=== PATIENT | male | born 1975 | race Caucasian/White ===

== ENCOUNTER 2022-10-18 17:58 | Inpatient (IN) | payer OTHER, SELFPAY ==
--- NOTE | ~2022-10-18 | CT_ITS ---
EXAMINATION: CT HEAD WITHOUT CONTRAST CT CERVICAL SPINE WITHOUT CONTRAST CLINICAL INFORMATION: Head trauma. COMPARISON: None available. TECHNIQUE: Contiguous axial imaging was performed from the skull base to vertex without intravenous administration of contrast. Contiguous axial imaging was performed from the upper chest through the skull base without intravenous administration of contrast. Coronal and sagittal reformats were obtained at the acquisition workstation. This CT examination was performed using dose optimization techniques as appropriate, variously including the following: *Automated exposure control. *Adjustment of mA and/or kV according to patient size (this includes techniques or standardized protocols for targeted exams where dose is matched to indication/reason for exam; i.e. extremities or head). *Use of iterative reconstruction technique. DLP: 1404 mGy-cm FINDINGS: Head: There is no evidence of acute intracranial hemorrhage or edematous territorial infarction. Ware-white matter differentiation is preserved. There is no abnormal attenuation within the brain parenchyma. The ventricles are normal in morphology and size. No evidence for obstructive hydrocephalus. No abnormal mass effect or midline shift. No extra-axial fluid collections. No acute soft tissue or osseous abnormalities. Mild mucosal thickening of the paranasal sinuses. The mastoid air cells and middle ear cavities are clear. Cervical Spine: The atlantooccipital and atlantoaxial articulations remain well aligned. Straightening of the normal cervical lordosis. Otherwise, there is anatomic alignment of the vertebral bodies and posterior elements. No evidence of acute fracture or subluxation. The vertebral body heights and disc spaces are maintained. There is no prevertebral soft tissue swelling. The thyroid gland and remaining cervical soft tissues are normal in appearance. The lung apices demonstrate no abnormalities. CT/CT cervical spine wo IV con IMPRESSION: 1. No evidence of acute intracranial hemorrhage or edematous territorial infarction. 2. No evidence of acute fracture or traumatic subluxation of the cervical spine.
--- NOTE | ~2022-10-18 | XR_ITS ---
EXAMINATION: XR CHEST CLINICAL INFORMATION: Chest trauma COMPARISON: None available. TECHNIQUE: Frontal view of the chest was obtained. FINDINGS: The lungs are clear. There are no pleural effusions. The cardiomediastinal silhouette is unremarkable. No displaced rib fracture or pneumothorax is evident. XR/XR chest 1V IMPRESSION: No acute disease.
[2022-10-18 18:09] VITALS: BP 122/87; PULSE 104; RESP 10; TEMP 36.7; O2SAT 90; O2SAT 95; BMI 34.0
--- NOTE | 2022-10-18 18:12 | PC.NURSE ---
SECURITY AWARE OF PT
--- NOTE | 2022-10-18 18:31 | ED_ITS ---
HPI - Overdose General Chief Complaint: Overdose Stated Complaint: OD Time Seen by Provider: 10/18/22 18:07 Source: patient Mode of arrival: ambulatory Limitations: other (poor historian, story changes ) History of Present Illness HPI Narrative: 47-year-old male hx of IVDA, alcohol abuse currently attending AA presents to the emergency department via ambulance status post opiate overdose, patient reports using 1 bag of heroin, was found unresponsive at [facility] in the bathroom. Patient received 4X 4 mg of intranasal Narcan by PD and 1 mg of IV narcan by EMS just prior to arrival. Patient tells me that he was clean for the past 6 months and relapsed today. Denies suicidal and homicidal ideation. Unsure of head trauma head trauma. Not on blood thinners. Denies headache, vision changes, dizziness, chest pain, shortness of breath, nausea, vomiting, abdominal pain. Related Data Allergies Allergy/AdvReac Type Severity Reaction Status Date / Time No Known Allergies Allergy Verified 10/18/22 18:12 [No Known Allergies*] Review of Systems Review of Systems: Constitutional : No Weight loss, No Fever, No Chills, No Fatigue, No Malaise ENT/Mouth : No sore throat, No Rhinorrhea Eyes: No Eye Pain, No Swelling, No Redness Cardiovascular : No Chest Pain, No SOB, No Dyspnea on Exertion, No Orthopnea, No Edema, No Palpitations Respiratory : No Cough, No Sputum, No Wheezing Gastrointestinal : No Nausea, No Vomiting, No Diarrhea, No Constipation, No abdominal Pain, No Hematochezia, No Melena Genitourinary : No Dysuria, No Urinary Frequency, No Hematuria, Musculoskeletal : No joint pain, No Myalgias, No Joint Swelling Skin : No Skin Lesions, No rash Neuro : No Weakness, No Numbness, No Dizziness, No Headache Psych : No Anxiety/Panic, No Depression, No SI/HI All other systems reviewed and are negative Yes all other systems are reviewed and are negative PMFSH Past Medical History Attestation statement: The following information was validated with the patient. Source: old records reviewed and nursing notes reviewed Social History Social History Alcohol intake: former Smoked in Last 30 Days: No Substance Use Type: Heroin Last Used Substance: Hours (ago) Any prior treatment program specific to substance use: Yes Advance Directives: No Advance Directives Information Provided: No Physical Exam Vital Signs: Vital Signs: Last Vital Signs Temp 96.5 F L 10/18/22 21:41 Pulse 113 H 10/18/22 21:41 Resp 14 10/18/22 21:41 BP 150/94 H 10/18/22 21:41 Pulse Ox 97 10/18/22 21:41 O2 Del Method Room Air 10/18/22 21:41 BMI result Body Mass Index 34.0 vss Appearance: Alert.? Oriented X3.? No acute distress.? Head: Normocephalic, atraumatic, no step-offs or deformities Eyes: Pupils equal, round and reactive to light.?.? Neck: Normal inspection.? Neck supple.? CVS: Normal heart rate and rhythm.? Pulses normal.? Respiratory: No respiratory distress.? Breath sounds normal.? Abdomen: Soft and nontender.? Skin: Skin warm and dry.? Normal skin color.? Normal skin turgor.? Extremities: No lower extremity edema.? No calf ttp. 5/5 strength to bilateral upper and lower extremities Neuro: Oriented X 3.? No motor deficit.? No sensory deficit. CN 2-12 intact Course Reevaluation(s) Reevaluation #1: I did have the opportunity to speak to who tells me last time she. Patient was around 16:00, he was found unresponsive, cyanotic with his head on the sink at [facility], he was standing up, she tells me she thinks that he hit his head against the sink. She tells me last time he overdose was in 2019. She reports that she does not feel comfortable taking him home as they do have a young daughter at home also concerned he may have done this as a suicide attempt although has not made clear statements about that. He has been on a Section 35 in the past. She tells me she is worried about him. Because of this provided information will obtain head CT and CT of the cervical spine as well as chest x-ray. Will obtain basic labs to ensure patient is not in rhabdo. When I went to go re-evaluate patient respiratory rate of 8, saturating 88% on room air. More Narcan ordered through IV. Patient's CBC within normocytic anemia hemoglobin of 7.5, hematocrit 22.2, patient denies any active bleeding in is adamantly refusing rectal exam. Chemistry with slightly elevated bilirubin 1.5, total creatinine kinase 472, not consistent with rhabdomyolysis. UA without infection. Urine toxicology pending. Ethanol negative. COVID negative. Time: 18:50 Reevaluation #2: Initially when IV Narcan was ordered it was not given this patient woke up, started vomiting and was awake and alert, now Patient saturating 85% w/ 2L NC Narcan will be given Time: 19:27 Reevaluation #3: Refusing Narcan adamantly. Currently on nasal cannula 3L Time: 20:11 Additional Reevaluation(s): Patient's O2 saturation was steadily in the mid 80s without oxygen. Patient ripped out his IV, illogical thoughts, not understanding risks. Poor judgment and insight, irrational behavior in the room. Patient telling me that he feels anxious and depressed for overdosing. I discussed this case with my attending, patient's story now changing and stating he only use half a bag and he wants to leave, security at the bedside due to patient's behavior, discussed with my attending who recommends Section 12 with psych evaluation patient could be a threat to others and self. Patient 87% on room air, discussed with my attending patient should be on a Narcan drip. Patient is on oxygen. Ripped out IV and tried to leave department. Security at bedside. 2118 Patient got up from the bed on his own, tried to walk to the bathroom, he fell, unsteady gait. Witnessed fall by this PA-C patient lowered himself to the ground. No head strike or loss of consciousness. 2 Patient again 84-85% on RA placed on O2. Refusing narcan. Care team reviewed case who believes section 12 is appropriate. 2241 Patient is agreeable to Narcan drip. Hypoxic, placed on oxygen. Patient will be going to the ICU with Narcan drip at 1. Spoke to Dr. Hanson who will admit patient. Medications Administered Generic Name Dose Route Start Last Admin Trade Name Freq PRN Reason Stop Dose Admin Naloxone HCl 5 mg/ Dextrose 100 mls @ 20 mls/hr 10/18/22 21:30 10/18/22 22:26 IV 1 mg/hr .Q5H SAMIR 20 mls/hr Administration 1 MG/HR Discontinued Medications Generic Name Dose Route Start Last Admin Trade Name Sandrine PRN Reason Stop Dose Admin Sodium Chloride 1,000 mls @ 999 mls/hr 10/18/22 19:00 10/18/22 18:59 Ns IV 10/18/22 20:00 999 mls/hr .Q1H1M SAMIR Administration Naloxone HCl 1 mg 10/18/22 18:48 10/18/22 19:05 Naloxone Hcl 2 Mg/2 Ml Syringe IVPUSH 10/18/22 18:49 Not Given ONCE ONE Naloxone HCl 1 mg 10/18/22 19:28 10/18/22 19:35 Naloxone Hcl 2 Mg/2 Ml Syringe IVPUSH 10/18/22 19:29 Not Given ONCE ONE Ondansetron HCl 4 mg 10/18/22 18:48 10/18/22 18:59 Ondansetron Hcl 4 Mg/2 Ml Vial IVPUSH 10/18/22 18:49 4 mg ONCE ONE Administration Medical Decision Making Medical Decision Making [facility] Narrative: 1833 47-year-old male presents status post unintentional opiate overdose just prior to arrival arrives via EMS received 4X 4 mg of intranasal narcan by PD and 1 mg of IV by EMS with good affect. Denies SI and HI. Not on blood thinners. He denies truama . Patient dozing off during my exam Physical exam benign. Neuro nonfocal. Lungs clear. Abdomen soft nontender nondistended. Likely opiate overdose. I do not suspect metabolic disturbances. Unlikely suicide attempt based off patient history and physical exam. Plan monitor patient, substance use disorder evaluation. Differential Diagnosis Differential Diagnoses: The differential diagnosis associated with the presentation includes Likely opiate overdose. I do not suspect metabolic disturbances. Unlikely suicide attempt based off patient history and physical exam. Admission/Observation Consideration of admission/observation: Escalation of care including admission/observation considered Lab Data [facility] Lab Attestation statement: I reviewed the patient's lab results. 10/18/22 18:57 10/18/22 18:57 Labs: Lab Results 10/18/22 10/18/22 10/18/22 Range/Units 18:57 18:57 18:57 WBC 10.9 H (4.8-10.8) X10*3/uL RBC 2.51 L (4.60-5.80) X10*6/uL Hgb 7.5 L (14.0-18.0) g/dl Hct 22.2 L (42.0-52.0) % MCV 88.4 (80.0-98.0) fL MCH 29.9 (27.0-33.0) pg MCHC 33.8 (31.0-36.0) g/dl RDW 12.4 (11.0-16.0) % Plt Count 105 L (160-400) X10*3/uL MPV 10.2 (9.4-12.4) fL Immature Gran % (Auto) 0.5 H (0.0-0.4) % Neut % (Auto) 84.5 H (45-73) % Lymph % (Auto) 7.0 L (20-40) % [place] % (Auto) 7.8 (2-11) % Eos % (Auto) 0.1 (0-4) % Baso % (Auto) 0.1 (0-2) % Lymph # (Auto) 0.8 L (1.2-4.9) X10*3/uL [place] # (Auto) 0.9 (0.1-1.2) X10*3/uL Eos # (Auto) 0.0 (0.0-0.4) X10*3/uL Baso # (Auto) 0.0 (0.0-0.2) X10*3/uL Abs Immat Gran (auto) 0.05 H (0.00-0.03) X10*3/uL Absolute Neuts (auto) 9.3 H (2.0-8.3) x10*3/uL Absolute Nucleated RBC 0.000 (0.0-0.012) X10*3/uL Nucleated RBC % (auto) 0.0 (0.0-0.2) /100WBC Sodium 142 (135-145) mmol/L Potassium 3.7 (3.3-5.1) mmol/L Chloride 107 (96-108) mmol/L Carbon Dioxide 22 (22-29) mmol/L Anion Gap 17 (12-20) BUN 15 (9-16) mg/dL Creatinine 1.08 (0.5-1.4) mg/dL Estim Creat Clear Calc 115.1 Estimated GFR > 60 Random Glucose 125 H (60-115) mg/dL Calcium 9.7 (8.4-10.2) mg/dL Total Bilirubin 1.5 H (0.0-1.0) mg/dL AST 25 (5-37) U/L ALT 23 (0-40) U/L Alkaline Phosphatase 65 (39-117) U/L Total Creatine Kinase 472 H (38-174) U/L Total Protein 6.6 (6.5-8.0) g/dL Albumin 4.1 (3.5-5.0) g/dL Urine Color Urine Appearance Urine pH (5.0-9.0) Ur Specific [place] (1.005-1.025) Urine Protein (Neg-Trace) mg/dL Urine Glucose (UA) (Negative) mg/dL Urine Ketones (Negative) mg/dL Urine Blood (Negative) Urine Nitrite (Negative) Ur Leukocyte Esterase (Negative) Ethyl Alcohol < 10 mg/dL COVID-19 ([place]) Negative (Negative) COVID-19 Clin Com See Note 10/18/22 Range/Units 22:27 WBC (4.8-10.8) X10*3/uL RBC (4.60-5.80) X10*6/uL Hgb (14.0-18.0) g/dl Hct (42.0-52.0) % MCV (80.0-98.0) fL MCH (27.0-33.0) pg MCHC (31.0-36.0) g/dl RDW (11.0-16.0) % Plt Count (160-400) X10*3/uL MPV (9.4-12.4) fL Immature Gran % (Auto) (0.0-0.4) % Neut % (Auto) (45-73) % Lymph % (Auto) (20-40) % [place] % (Auto) (2-11) % Eos % (Auto) (0-4) % Baso % (Auto) (0-2) % Lymph # (Auto) (1.2-4.9) X10*3/uL [place] # (Auto) (0.1-1.2) X10*3/uL Eos # (Auto) (0.0-0.4) X10*3/uL Baso # (Auto) (0.0-0.2) X10*3/uL Abs Immat Gran (auto) (0.00-0.03) X10*3/uL Absolute Neuts (auto) (2.0-8.3) x10*3/uL Absolute Nucleated RBC (0.0-0.012) X10*3/uL Nucleated RBC % (auto) (0.0-0.2) /100WBC Sodium (135-145) mmol/L Potassium (3.3-5.1) mmol/L Chloride (96-108) mmol/L Carbon Dioxide (22-29) mmol/L Anion Gap (12-20) BUN (9-16) mg/dL Creatinine (0.5-1.4) mg/dL Estim Creat Clear Calc Estimated GFR Random Glucose (60-115) mg/dL Calcium (8.4-10.2) mg/dL Total Bilirubin (0.0-1.0) mg/dL AST (5-37) U/L ALT (0-40) U/L Alkaline Phosphatase (39-117) U/L Total Creatine Kinase (38-174) U/L Total Protein (6.5-8.0) g/dL Albumin (3.5-5.0) g/dL Urine Color Yellow Urine Appearance Clear Urine pH 5.0 (5.0-9.0) Ur Specific [place] >= 1.030 H (1.005-1.025) Urine Protein 30 (1+) H (Neg-Trace) mg/dL Urine Glucose (UA) 500 H (Negative) mg/dL Urine Ketones 40 (Negative) mg/dL Urine Blood Trace H (Negative) Urine Nitrite Negative (Negative) Ur Leukocyte Esterase Negative (Negative) Ethyl Alcohol mg/dL COVID-19 ([place]) (Negative) COVID-19 Clin Com Independent Interpretation I performed an independent interpretation of an: CT Scan (CT of the head with no evidence of acute intracranial hemorrhage or edematous her to or infarction. No evidence of acute fracture or traumatic subluxation of the cervical spine.) Radiology Impression Discussion of test interpretation with radiology: I have reviewed the radiologist's reading. Core Measures AMI core measures followed: Yes Measure exclusions: not indicated Critical Care Time Critical Care Time Critical Care Time: Yes Total Critical Care Time: 60 Attestation: I attest to this time spent taking care of the patient, obtaining history, physical, reviewing labs, imaging, speaking to my attending, speaking to specialist. Discharge Plan Discharge Clinical Impression: Drug overdose Patient Disposition: Admitted As Inpatient Interventions: [place]-Suicide Risk Severity Scale Last Done: 10/18/22 21:43
[2022-10-18] MEDS: 0.9 % Sodium Chloride 1,000 ML 999 ML IV (18:59)
[2022-10-18] MEDS: ondansetron HCL 4 MG/2 ML VIAL IVPUSH (18:59)
[2022-10-18 19:08] LABS: MANUAL DIFF FLAG NO
[2022-10-18 19:09] LABS: Basophils Percent Auto 0.1 % (0-2); Eosinophils Percent Auto 0.1 % (0-4); Hematocrit 22.2 % (42.0-52.0); Hemoglobin 7.5 g/dl (14.0-18.0); Imm Gran Abs Auto 0.05 X10*3/uL (0.00-0.03); Imm Gran Pct Auto 0.5 % (0.0-0.4); Lymphocytes Absolute Auto 0.8 X10*3/uL (1.2-4.9); Mean Corpuscular HGB Conc 33.8 g/dl (31.0-36.0); Mean Corpuscular Hemoglobin 29.9 pg (27.0-33.0); Mean Corpuscular Volume 88.4 fL (80.0-98.0); Mean Platelet Volume 10.2 fL (9.4-12.4); Monocytes Absolute Auto 0.9 X10*3/uL (0.1-1.2); Monocytes Percent Auto 7.8 % (2-11); Neutrophils Absolute Auto 9.3 x10*3/uL (2.0-8.3); Neutrophils Percent Auto 84.5 % (45-73); Platelet Count 105 X10*3/uL (160-400); Red Blood Count 2.51 X10*6/uL (4.60-5.80); Red Cell Distribution Width 12.4 % (11.0-16.0); White Blood Count 10.9 X10*3/uL (4.8-10.8)
[2022-10-18 19:21] LABS: COVID-19 Test Negative (Negative); IDNOW Serial# BCCEAD1C
[2022-10-18 19:25] VITALS: RESP 9; O2SAT 83
[2022-10-18 19:42] LABS: Alanine Aminotransferase 23 U/L (0-40); Albumin Level 4.1 g/dL (3.5-5.0); Alkaline Phosphatase 65 U/L (39-117); Anion Gap 17 (12-20); Aspartate Amino Transferase 25 U/L (5-37); Bilirubin Total 1.5 mg/dL (0.0-1.0); Blood Urea Nitrogen 15 mg/dL (9-16); Calcium 9.7 mg/dL (8.4-10.2); Carbon Dioxide 22 mmol/L (22-29); Chloride 107 mmol/L (96-108); Creatinine Clr Calc Pharmacy 115.1; Estimated Glomerular Filt Rate > 60; Ethanol < 10 mg/dL; Glucose Random 125 mg/dL (60-115); Potassium 3.7 mmol/L (3.3-5.1); Sodium 142 mmol/L (135-145); Total Protein 6.6 g/dL (6.5-8.0)
--- NOTE | 2022-10-18 21:13 | PC.NURSE ---
late entry- pt spo2 dropped to 83% per richie navarro give iv narcan. pt adamantly refused narcan. this rn and charge poster at bedside. pt placed on 2LPM NC spo2 96%. this rn made richie navarro aware. richie navarro states will discuss with pt.
--- NOTE | 2022-10-18 21:16 | PC.NURSE ---
late entry- per richie navarro removed pt from O2 NC . pt spo2 96%
--- NOTE | 2022-10-18 21:17 | PC.NURSE ---
late entry- this rn, battery charger conveyor line. and richie navarro entered pt pt removed IV by self. pt stating wants to leave states my oxygen is fine . pt increasing agitation. pt not allowing provider to speak. security on standby
[2022-10-18 21:28] VITALS: RESP 10; O2SAT 85
[2022-10-18 21:41] VITALS: BP 150/94; PULSE 113; RESP 14; TEMP 35.8; O2SAT 97
--- NOTE | 2022-10-18 21:51 | PC.NURSE ---
late entry- @ 2127 pt spo2 dropped to 85% ramon chang. pt moved to room 9.
[2022-10-18] MEDS: Naloxone HCl 5 MG in Dextrose 5 % 95 ML 20 MG IV (22:26)
[2022-10-18 22:36] LABS: Appearance Urine Clear; Color Urine Yellow; Glucose Urine UA 500 mg/dL (Negative); Leukocyte Esterase Urine Negative (Negative); Nitrite Urine Negative (Negative); Specific Gravity - Urine >= 1.030 (1.005-1.025); UMIC TRIGGER UACC YES; Urine Blood Trace (Negative); Urine Ketones 40 mg/dL (Negative); Urine Protein 30 (1+) mg/dL (Neg-Trace)
[2022-10-18 22:41] LABS: Bacteria Urine None Seen (None Seen); RBC Urine 0-2 /HPF (0-2); Squamous Epithelial Cell Urine 0-2 /HPF (0-2); WBC Urine 0-5 /HPF (0-5)
[2022-10-18 22:51] LABS: Amphetamine Screen Urine Not Detected (Not Detect); Barbiturates, Urine Not Detected (Not Detect); Benzodiazepines Screen Urine Not Detected (Not Detect); Cannabinoid Screen Urine Not Detected (Not Detect); Cocaine Screen Urine Not Detected (Not Detect); Fentanyl, urine POSITIVE (Not Detect); Opiate Screen Urine POSITIVE (Not Detect); Phencyclidine Screen Urine Not Detected (Not Detect)
--- NOTE | 2022-10-18 22:59 | MHC.EDTECH ---
This PCT was at bedside when PT got up to go to the bathroom PT got up too fast and lowered himself to the ground. OH chang.
--- NOTE | 2022-10-18 23:15 | PM.CCHP ---
History of Present Illness Date of Service: 10/18/22 Attending physician on admission: Maciel Hanson Chief Complaint: Opioid overdose HPI: ?39-year-old male with prior history of IV drug abuse, alcohol abuse who is currently attending alcoholics anonymous, presented to the ER today status post a opiate overdose, the patient had been found unresponsive at a [facility] bathroom, police personnel administered a total of 4 doses of 4 mg H of intranasal Narcan followed by 1 mg of IV Narcan administered by EMS just prior to arrival to the ER.? In the emergency room, the patient had admitted to use a bag of heroin and suspects that he had some fentanyl in it.? Patient had been clean for about 6 months but claim to have relapsed today, however it is known that the patient's stated he admitted to her having done some drugs yesterday as well.? Although initially the patient was awake, he kept becoming sleepy and hypoxic therefore he was placed on a Narcan drip.? At some point he had tried to get up and fell face forward in the emergency room, to which he claims his leg gave out and that it was not the OD acting on him. ? The patient's laboratory workup in the ER was overall unremarkable with exception of anemia and a positive drug test for fentanyl and opioids.? Patient had been seen by the crisis team and the patient was section 12th given the patient's reports that this is likely a intentional overdose as the patient has tried to commit suicide in the past. ?While in the ER, and while on Narcan drip, the patient had become more awake and given threatened to leave the hospital. ? During my interview, the patient was not verbally arousable, he did response to sternal rub, was somewhat agitated and was initially refusing to stay in the hospital, stating that he was told he would be admitted, however he was informed that he has been section 12.? Currently he denies any headache, double or blurry vision, chest pain, shortness a breath, arm or jaw pain, abdominal or genitourinary complaints.? Denies drinking alcohol recently and then he became upset and said ?just read the chart and on ask me any more questions?. ?? ROS:? Unable to obtain ? Past Medical History:? As above ? Past Surgical History: denies ? Family history: ?Noncontributory ? Social History:? Lives with his ; admits having a long history of polysubstance abuse including alcohol, heroin but states he was clean for months before relapsing today. ? CODE STATUS: FULL CODE ? Allergies: NKDA ? Home Medications: See Med Rec ? PHYSICAL EXAM: VS: ?117/79, 86, 17, 95% room air, 98.2 F. General:? Alert oriented x3 no acute distress.? Speaking full sentences.? Speech is well articulated, thought process is coherent.? Following all commands. Skin:? Intact, no lesions, edema, erythema, clubbing or cyanosis.? No ulcers. HEENT:? Head is normocephalic, atraumatic, pupils pinpoint Extraocular movements appear intact.? Buccal mucosa is moist, Neck is supple without lymphadenopathy. Cardiac:? Clear S1-S2, no murmurs rubs or gallops. Pulmonary:? Clear to auscultation, no wheezes, rales or rhonchi. Abdomen:? Protuberant, positive bowel sounds in all 4 quadrants.? Soft, nontender, no rebound or guarding.? Musculoskeletal:? Moving all 4 extremities upon request a major joints, there is no crepitus or tenderness.? The strength is 5/5 bilaterally and throughout all 4 extremities.? There is no leg edema , no calf tenderness , no leg asymmetry.? Gait not assessed at this point. Neurologic:? As above, cranial nerves 2-12 are grossly intact.? No focal deficits noted. Motor strength as above.? Vascular:? 2+ pulses upper and lower extremities distally. ? SIGNIFICANT LABORATORY DATA:? White blood cell 10.9, hemoglobin 7.5, hematocrit 22.2, platelets 105, MCV 88.4.? Sodium 142, potassium 3.7, chloride 107, carbon dioxide 22, anion gap 17, BUN 15, creatinine 1.08.? Total bilirubin 1.5, SAT 25, ALT 23, total CK 472. ?Urine positive for protein, glucose and trace blood.? Respiratory panel including COVID is negative. ? REVIEW OF IMAGES: HEAD CT IMPRESSION: 1.? No evidence of acute intracranial hemorrhage or edematous territorial infarction. 2.? No evidence of acute fracture or traumatic subluxation of the cervical spine. ? C SPINE CT IMPRESSION: 1.? No evidence of acute intracranial hemorrhage or edematous territorial infarction. 2.? No evidence of acute fracture or traumatic subluxation of the cervical spine. ? CXR IMPRESSION: No acute disease. ? ASSESSMENT : 1. Opiate overdose 2. Suicidal ideation and questionable attempt currently SECTION 12 3. Polysubstance abuse 4. Alcohol abuse 5. Normocytic Anemia not otherwise specified ruled out microscopic bleeding, iron deficiency, chronic disease 6. Thrombocytopenia of unknown etiology 7. Proteinuria and glucosuria without history of diabetes or renal disease 8. Mild rhabdomyolysis 9. s/p mechanical fall in the ER without LOC ? PLAN OF CARE: Admit to ICU, monitor vital signs, I's and O's, continue with Narcan drip, patient is section 12, will order stool guaiac, iron panel, repeat laboratories in the morning including CPK and administer gentle IV fluids. While in the ICU upon arriving the patient refused to stay and ripped off his IV, becoming upset and requirements to call security.? Once the patient come down, he stated that he does not want to be on Narcan as this makes him agitated. Will monitor him closely for any signs of desaturation or obtundation and allow him to be off the drip for now. ? GI PROPHYLAXIS: ?IV ppi DVT PROPHYLAXIS:? Pneumatic stockings only given significant anemia until we rule out microscopic bleeding Clinical update 0621 am 10/19/2022 Pt stable no issues overnight, off Narcam gtt since 2330 last night, Awakes easy to verbal commands. Will need formal Psych eval and cont 1 to 1. Case discussed with Dr Yee will transfer to reg floor. ? Critical care time used for critical evaluation of this patient, diagnosis, treatment and coordination of care, review her records and documentation TOTAL CRITICAL CARE TIME??90? MIN . discussion and coordination with consultants, completely separate from any procedures performed. Patient's care was discussed in detail with Dr. Hanson.? He is aware of all the above as well as the plan of care for this patient. [facility] Social History Social History Household Members: Spouse and Children Housing: Condominium Do you presently have visiting nurse or other home services: No Alcohol intake: former Patient Tobacco Use Status: Former Tobacco user Smoked in Last 30 Days: No e-Cigarette/Vaping Use: Currently Using Patient Interested in Nicotine Replacement: No Use of substances other than those prescribed or required for medical reasons: Yes Substance Use Type: Heroin and Opiates Substance Use Frequency: Recent Binge Last Used Substance: Just Prior to Admission Currently Displaying Signs/Symptoms of Drug Intoxication Withdrawal: No Any prior treatment program specific to substance use: Yes Have you been hit, kicked, punched, or otherwise hurt by someone within the past year? If so, by whom?: No Do you feel safe in your current relationship?: Yes Is there a partner from a previous relationship who is making you feel unsafe now?: No Are you made to feel afraid or neglected: No Advance Directives: No Advance Directives Information Provided: No Do you have thoughts of harming others: None Do you have a plan to hurt others: No Plan Recently lost weight without trying: No How much weight loss: Not applicable Nutrition Risks: No Nutritional Risk Meds Allergies Allergy/AdvReac Type Severity Reaction Status Date / Time No Known Allergies Allergy Verified 10/18/22 18:12 [No Known Allergies*] Active Medications: Current Medications Naloxone HCl 5 mg/ Dextrose 100 mls @ 40 mls/hr IV .Q2H30M [facility] Pharmacy Consult (Consult Rx Perform Med Rec) 1 each MISCELLANE ONCE PRN PRN Reason: Consult order Physical Exam Vital Signs: Vital Signs: Last Vital Signs Temp 96.5 F L 10/18/22 21:41 Pulse 113 H 10/18/22 21:41 Resp 14 10/18/22 21:41 BP 150/94 H 10/18/22 21:41 Pulse Ox 97 10/18/22 21:41 O2 Del Method Room Air 10/18/22 21:41 BMI result Body Mass Index 34.0 Results Labs 10/18/22 18:57 10/18/22 18:57 Labs: Laboratory Results - last 24 hr 10/18/22 10/18/22 10/18/22 18:57 18:57 18:57 MCV 88.4 MCH 29.9 MCHC 33.8 RDW 12.4 Plt Count 105 L MPV 10.2 Immature Gran % (Auto) 0.5 H Neut % (Auto) 84.5 H Lymph % (Auto) 7.0 L [place] % (Auto) 7.8 Eos % (Auto) 0.1 Baso % (Auto) 0.1 Lymph # (Auto) 0.8 L [place] # (Auto) 0.9 Eos # (Auto) 0.0 Baso # (Auto) 0.0 Abs Immat Gran (auto) 0.05 H Absolute Neuts (auto) 9.3 H Absolute Nucleated RBC 0.000 Nucleated RBC % (auto) 0.0 Anion Gap 17 Estim Creat Clear Calc 115.1 Estimated GFR > 60 Random Glucose 125 H Calcium 9.7 Total Bilirubin 1.5 H AST 25 ALT 23 Alkaline Phosphatase 65 Total Creatine Kinase 472 H Total Protein 6.6 Albumin 4.1 Urine Color Urine Appearance Urine pH Ur Specific [place] Urine Protein Urine Glucose (UA) Urine Ketones Urine Blood Urine Nitrite Ur Leukocyte Esterase Urine RBC Urine WBC Ur Squamous Epith Cells Urine Bacteria Hyaline Casts Urine Opiates Screen Urine Fentanyl Screen Ur Barbiturates Screen Ur Phencyclidine Scrn Ur Amphetamines Screen U Benzodiazepines Scrn Urine Cocaine Screen U Marijuana (THC) Screen Ethyl Alcohol < 10 COVID-19 ([facility]) Negative COVID-19 Clin Com See Note 10/18/22 10/18/22 22:27 22:27 MCV MCH MCHC RDW Plt Count MPV Immature Gran % (Auto) Neut % (Auto) Lymph % (Auto) [place] % (Auto) Eos % (Auto) Baso % (Auto) Lymph # (Auto) [place] # (Auto) Eos # (Auto) Baso # (Auto) Abs Immat Gran (auto) Absolute Neuts (auto) Absolute Nucleated RBC Nucleated RBC % (auto) Anion Gap Estim Creat Clear Calc Estimated GFR Random Glucose Calcium Total Bilirubin AST ALT Alkaline Phosphatase Total Creatine Kinase Total Protein Albumin Urine Color Yellow Urine Appearance Clear Urine pH 5.0 Ur Specific [place] >= 1.030 H Urine Protein 30 (1+) H Urine Glucose (UA) 500 H Urine Ketones 40 Urine Blood Trace H Urine Nitrite Negative Ur Leukocyte Esterase Negative Urine RBC 0-2 Urine WBC 0-5 Ur Squamous Epith Cells 0-2 Urine Bacteria None Seen Hyaline Casts 3-5 Urine Opiates Screen POSITIVE H Urine Fentanyl Screen POSITIVE H Ur Barbiturates Screen Not Detected Ur Phencyclidine Scrn Not Detected Ur Amphetamines Screen Not Detected U Benzodiazepines Scrn Not Detected Urine Cocaine Screen Not Detected U Marijuana (THC) Screen Not Detected Ethyl Alcohol COVID-19 ([facility]) COVID-19 Clin Com Imaging Radiologist's Impressions: Impressions Chest X-Ray 10/18/22 19:23 IMPRESSION: No acute disease. Cervical Spine CT 10/18/22 20:41 IMPRESSION: 1. No evidence of acute intracranial hemorrhage or edematous territorial infarction. 2. No evidence of acute fracture or traumatic subluxation of the cervical spine. Head CT 10/18/22 20:42 IMPRESSION: 1. No evidence of acute intracranial hemorrhage or edematous territorial infarction. 2. No evidence of acute fracture or traumatic subluxation of the cervical spine. Assessment and Plan Time Spent With Patient Time: Total time managing care of this patient today ____ minutes.
[2022-10-18 23:19] LABS: Magnesium 2.1 mg/dL (1.6-2.6); Phosphorus 3.4 mg/dL (2.7-4.5)
[2022-10-18 23:47] VITALS: BP 117/79; PULSE 86; RESP 17; TEMP 36.8; O2SAT 95
[2022-10-19] VITALS (10 sets, daily range): BP systolic 98–133; BP diastolic 58–82; PULSE 68–102; RESP 10–19; TEMP 36.1–36.6; O2SAT 93–97; BMI 35.9; BMI 35.6
--- NOTE | 2022-10-19 00:04 | PC.NURSE ---
Provider Wanda attempted tp perform rectal exam, patient refused
--- NOTE | 2022-10-19 00:10 | PC.NURSE ---
Nurse to Nurse report given to Namita in the ICU. Patient transferred to unit by ED Nurse and Tech.
[2022-10-19 05:35] LABS: VBG Base Excess -1.1 mmol/L; VBG HCO3 22 mmol/L (22-26); VBG pCO2 34 mmHg; VBG pH 7.42 (7.32-7.43); VBG pO2 73 mmHg
[2022-10-19 06:17] LABS: MANUAL DIFF FLAG NO
[2022-10-19 06:23] LABS: Basophils Percent Auto 0.3 % (0-2); Eosinophils Percent Auto 0.3 % (0-4); Hematocrit 39.5 % (42.0-52.0); Hemoglobin 13.4 g/dl (14.0-18.0); Imm Gran Abs Auto 0.02 X10*3/uL (0.00-0.03); Imm Gran Pct Auto 0.2 % (0.0-0.4); Lymphocytes Absolute Auto 2.7 X10*3/uL (1.2-4.9); Mean Corpuscular HGB Conc 33.9 g/dl (31.0-36.0); Mean Corpuscular Volume 88.4 fL (80.0-98.0); Mean Platelet Volume 10.9 fL (9.4-12.4); Monocytes Percent Auto 10.4 % (2-11); Neutrophils Absolute Auto 5.9 x10*3/uL (2.0-8.3); Neutrophils Percent Auto 60.8 % (45-73); Platelet Count 201 X10*3/uL (160-400); Red Blood Count 4.47 X10*6/uL (4.60-5.80); Red Cell Distribution Width 12.3 % (11.0-16.0); White Blood Count 9.6 X10*3/uL (4.8-10.8)
[2022-10-19 06:37] LABS: Alanine Aminotransferase 21 U/L (0-40); Albumin Level 3.7 g/dL (3.5-5.0); Alkaline Phosphatase 57 U/L (39-117); Anion Gap 16 (12-20); Aspartate Amino Transferase 20 U/L (5-37); Bilirubin Total 1.3 mg/dL (0.0-1.0); Blood Urea Nitrogen 13 mg/dL (9-16); Calcium 8.8 mg/dL (8.4-10.2); Carbon Dioxide 23 mmol/L (22-29); Chloride 108 mmol/L (96-108); Creatinine Clr Calc Pharmacy 155.9; Estimated Glomerular Filt Rate > 60; Glucose Random 87 mg/dL (60-115); Potassium 3.9 mmol/L (3.3-5.1); Sodium 143 mmol/L (135-145)
[2022-10-19 07:32] LABS: Venous Blood Gas Refer to POC result
[2022-10-19 08:43] LABS: Iron 121 mcg/dL (45-160); Percent Iron Saturation 42 % (15-50); Total Iron Binding Capacity 290 mcg/dL (228-428); Unsaturated Iron Binding 169 ug/dL
--- NOTE | 2022-10-19 09:09 | PHA.MEDREC ---
Pharmacy Consult ? Medication Reconciliation Pharmacy has completed the medication reconciliation. Patient states to not be on any meds or OTC at home. Claim history used to verify.
--- NOTE | 2022-10-19 12:24 | MHC.CM.PN ---
Met w/pt to review d/c planning needs: pt from home w/family, independent with care needs, no services or DME utilized: pt found unconscious in a convenience store bathroom: given several doses of naloxone by EMS and brought to [facility]. Pt states he had been sober for over 6 months and made a bad decision without considering the consequences pt not on MAT but very active with community recovery supports including AA. States he has a sponsor that he contacted. Pt also states he regularly speaks at various support and recovery groups in the area. Explained to pt that DCF report will be filed as there are children under 18 in the home: pt given opportunity to ask questions - seemed saddened but understood mandated supervisor webbing criteria. Spouse to transport when ready to d/c. Child (iraj) are with mother/pt's spouse. DCF report called into weekend number: report given and printed version faxed to [place] office.
--- NOTE | 2022-10-19 12:31 | PM.DS ---
DS: Providers Provider Date of Service: 10/19/22 Date of admission: 10/18/22 22:45 Date of discharge: 10/19/22 Primary care physician: Skinny Lopez MD Consults: 10/18/22 18:32 Consult to Care Team Stat Comment: Reason for consultation: SUDE 10/19/22 07:30 Addiction Medicine Routine Consulting Provider: Addiction Covering Reason for consultation: SI sec 12 OD med clear Consult to Care Team Stat Comment: Reason for consultation: SI sec 12 OD med clear Consult to Psychiatry Routine Consulting Provider: Psych Covering Reason for consultation: SI sec 12 OD med clear DS: Diagnosis Discharge Diagnosis (1) Opioid overdose: Status: Acute (2) Acute respiratory failure with hypoxia: Status: Acute DS: Summary Hospital Course Hospital Course: from admission history and physical by staff internist office based only [place], 10/18/22: 39-year-old male with prior history of IV drug abuse, alcohol abuse who is currently attending alcoholics anonymous, presented to the ER today status post a opiate overdose, the patient had been found unresponsive at a [facility] bathroom, police personnel administered a total of 4 doses of 4 mg H of intranasal Narcan followed by 1 mg of IV Narcan administered by EMS just prior to arrival to the ER.? In the emergency room, the patient had admitted to use a bag of heroin and suspects that he had some fentanyl in it.? Patient had been clean for about 6 months but claim to have relapsed today, however it is known that the patient's stated he admitted to her having done some drugs yesterday as well.? Although initially the patient was awake, he kept becoming sleepy and hypoxic therefore he was placed on a Narcan drip.? At some point he had tried to get up and fell face forward in the emergency room, to which he claims his leg gave out and that it was not the OD acting on him. ? The patient's laboratory workup in the ER was overall unremarkable with exception of anemia and a positive drug test for fentanyl and opioids.? Patient had been seen by the crisis team and the patient was section 12th?given the patient's reports that this is likely a intentional overdose as the patient has tried to commit suicide in the past. ?While in the ER, and while on Narcan drip, the patient had become more awake and given threatened to leave the hospital. ? During my interview, the patient was not verbally arousable, he did response to sternal rub, was somewhat agitated and was initially refusing to stay in the hospital, stating that he was told he would be admitted, however he was informed that he has been section 12.? Currently he denies any headache, double or blurry vision, chest pain, shortness a breath, arm or jaw pain, abdominal or genitourinary complaints.? Denies drinking alcohol recently and then he became upset and said ?just read the chart and on ask me any more questions?. Upon arrival in the ICU, he ripped out his IV and became upset. He requested to be off Narcan due to agitation. Drip was discontinued at 23:30 and he had no issues with desaturation or obtundation. He denied suicidal ideation to multiple interviewers. He was seen by the behavioral health team and deemed not to require inpatient psychiatric care. He was discharged home with a prescription for naloxone and will resume his outpatient substance abuse counseling. Time Spent with Patient Time attestation: Total time managing care of this patient today __35__ minutes. Discharge coordination time: Greater than 30 minutes Quality: Safe Use of Opioids Does Pt have an Active Cancer Diagnosis on the Problem List?: No Quality: Stroke Does the patient have a stroke diagnosis?: No Physical Exam Vital Signs: Vital Signs: Last Vital Signs Temp 96.9 F 10/19/22 11:10 Pulse 87 10/19/22 11:10 Resp 18 10/19/22 11:10 BP 133/82 10/19/22 11:10 Pulse Ox 95 10/19/22 11:10 O2 Del Method Room Air 10/19/22 11:10 O2 Flow Rate 2 10/19/22 05:00 BMI result Body Mass Index 35.6 Gen: in no acute distress HEENT: sclera anicteric, moist mucus membranes Neck: supple Lungs: clear to auscultation bilaterally Heart: regular rate and rhythm, no murmurs Abd: soft, non-tender, non-distended Ext: no edema Skin: warm/well-perfused Neuro: alert and oriented x3, no focal findings Psych: appropriate affect DS: Data Data Completed and Pending Completed studies during hospitalization [Text1]: Laboratory Results WBC 9.6 X10*3/uL (4.8-10.8) 10/19/22 05:15 RBC 4.47 X10*6/uL (4.60-5.80) L D 10/19/22 05:15 Hgb 13.4 g/dl (14.0-18.0) L D 10/19/22 05:15 Hct 39.5 % (42.0-52.0) L D 10/19/22 05:15 MCV 88.4 fL (80.0-98.0) 10/19/22 05:15 MCH 30.0 pg (27.0-33.0) 10/19/22 05:15 MCHC 33.9 g/dl (31.0-36.0) 10/19/22 05:15 RDW 12.3 % (11.0-16.0) 10/19/22 05:15 Plt Count 201 X10*3/uL (160-400) D 10/19/22 05:15 MPV 10.9 fL (9.4-12.4) 10/19/22 05:15 Immature Gran % (Auto) 0.2 % (0.0-0.4) 10/19/22 05:15 Neut % (Auto) 60.8 % (45-73) 10/19/22 05:15 Lymph % (Auto) 28.0 % (20-40) 10/19/22 05:15 [place] % (Auto) 10.4 % (2-11) 10/19/22 05:15 Eos % (Auto) 0.3 % (0-4) 10/19/22 05:15 Baso % (Auto) 0.3 % (0-2) 10/19/22 05:15 Lymph # (Auto) 2.7 X10*3/uL (1.2-4.9) 10/19/22 05:15 [place] # (Auto) 1.0 X10*3/uL (0.1-1.2) 10/19/22 05:15 Eos # (Auto) 0.0 X10*3/uL (0.0-0.4) 10/19/22 05:15 Baso # (Auto) 0.0 X10*3/uL (0.0-0.2) 10/19/22 05:15 Abs Immat Gran (auto) 0.02 X10*3/uL (0.00-0.03) 10/19/22 05:15 Absolute Neuts (auto) 5.9 x10*3/uL (2.0-8.3) 10/19/22 05:15 Absolute Nucleated RBC 0.000 X10*3/uL (0.0-0.012) 10/19/22 05:15 Nucleated RBC % (auto) 0.0 /100WBC (0.0-0.2) 10/19/22 05:15 VBG pH 7.42 (7.32-7.43) 10/19/22 05:26 VBG pCO2 34 mmHg 10/19/22 05:26 VBG pO2 73 mmHg 10/19/22 05:26 VBG HCO3 22 mmol/L (22-26) 10/19/22 05:26 VBG O2 Saturation 96.0 % 10/19/22 05:26 VBG Base Excess -1.1 mmol/L 10/19/22 05:26 Sodium 143 mmol/L (135-145) 10/19/22 05:15 Potassium 3.9 mmol/L (3.3-5.1) 10/19/22 05:15 Chloride 108 mmol/L (96-108) 10/19/22 05:15 Carbon Dioxide 23 mmol/L (22-29) 10/19/22 05:15 Anion Gap 16 (12-20) 10/19/22 05:15 BUN 13 mg/dL (9-16) 10/19/22 05:15 Creatinine 0.82 mg/dL (0.5-1.4) 10/19/22 05:15 Estim Creat Clear Calc 155.9 10/19/22 05:15 Estimated GFR > 60 10/19/22 05:15 Random Glucose 87 mg/dL (60-115) 10/19/22 05:15 Calcium 8.8 mg/dL (8.4-10.2) D 10/19/22 05:15 Phosphorus 3.4 mg/dL (2.7-4.5) 10/18/22 18:57 Magnesium 2.1 mg/dL (1.6-2.6) 10/18/22 18:57 Iron 121 mcg/dL (45-160) 10/19/22 07:49 TIBC 290 mcg/dL (228-428) 10/19/22 07:49 % Saturation 42 % (15-50) 10/19/22 07:49 Unsat Iron Binding 169 ug/dL 10/19/22 07:49 Total Bilirubin 1.3 mg/dL (0.0-1.0) H 10/19/22 05:15 AST 20 U/L (5-37) 10/19/22 05:15 ALT 21 U/L (0-40) 10/19/22 05:15 Alkaline Phosphatase 57 U/L (39-117) 10/19/22 05:15 Total Creatine Kinase 352 U/L (38-174) H 10/19/22 05:15 Total Protein 6.0 g/dL (6.5-8.0) L 10/19/22 05:15 Albumin 3.7 g/dL (3.5-5.0) 10/19/22 05:15 Urine Color Yellow 10/18/22 22:27 Urine Appearance Clear 10/18/22 22:27 Urine pH 5.0 (5.0-9.0) 10/18/22 22:27 Ur Specific [place] >= 1.030 (1.005-1.025) H 10/18/22 22:27 Urine Protein 30 (1+) mg/dL (Neg-Trace) H 10/18/22 22:27 Urine Glucose (UA) 500 mg/dL (Negative) H 10/18/22 22:27 Urine Ketones 40 mg/dL (Negative) 10/18/22 22:27 Urine Blood Trace (Negative) H 10/18/22 22:27 Urine Nitrite Negative (Negative) 10/18/22 22: Ur Leukocyte Esterase Negative (Negative) 10/18/22 22:27 Urine RBC 0-2 /HPF (0-2) 10/18/22 22:27 Urine WBC 0-5 /HPF (0-5) 10/18/22 22: Ur Squamous Epith Cells 0-2 /HPF (0-2) 10/18/22 22: Urine Bacteria None Seen (None Seen) 10/18/22 22: Hyaline Casts 3-5 /LPF (0-2) 10/18/22 22:27 Urine Opiates Screen POSITIVE (Not Detect) H 10/18/22 22:27 Urine Fentanyl Screen POSITIVE (Not Detect) H 10/18/22 22:27 Ur Barbiturates Screen Not Detected (Not Detect) 10/18/22 22:27 Ur Phencyclidine Scrn Not Detected (Not Detect) 10/18/22 22:27 Ur Amphetamines Screen Not Detected (Not Detect) 10/18/22 22:27 U Benzodiazepines Scrn Not Detected (Not Detect) 10/18/22 22:27 Urine Cocaine Screen Not Detected (Not Detect) 10/18/22 22:27 U Marijuana (THC) Screen Not Detected (Not Detect) 10/18/22 22:27 Ethyl Alcohol < 10 mg/dL 10/18/22 18:57 COVID-19 (PHILOMENA) Negative (Negative) 10/18/22 18:57 COVID-19 Clin Com See Note 10/18/22 18:57 Impressions Chest X-Ray 10/18/22 19:23 IMPRESSION: No acute disease. Cervical Spine CT 10/18/22 20:41 IMPRESSION: 1. No evidence of acute intracranial hemorrhage or edematous territorial infarction. 2. No evidence of acute fracture or traumatic subluxation of the cervical spine. Head CT 10/18/22 20:42 IMPRESSION: 1. No evidence of acute intracranial hemorrhage or edematous territorial infarction. 2. No evidence of acute fracture or traumatic subluxation of the cervical spine. Discharge Plan Discharge Anticipated Discharge Date/Time: 10/19/22 12:10 Patient Disposition: Home, Self-Care Discharge Diagnosis: opioid overdose Referrals: Skinny Lopez MD [Primary Care Provider] - 1 Week Discharge Medications: New naloxone 4 mg/actuation spray,non-aerosol 4 mg intranasal Q2M PRN (Reason: opioid overdose) Qty: 2 11RF Rx Instructions: spray 1 dose into ONE nostril; alternate nostrils w each dose until help arrives Discharge Orders: Discharge Order (Routine); Ordered 10/19/22 Ordered By: Gilma Cole Diet: Advance to usual diet Activity on Discharge: As tolerated Stand Alone Forms: Patient Portal Discharge page Care Plan Goals: sobriety Health Concerns: opioid overdose/relapse Plan of Treatment: follow up with community resources to maintain sobriety naloxone in case of overdose Please follow up with your primary care doctor within 1 week. Return to the hospital if you experience recurrent or worsening symptoms. Assessment: See Discharge Summary.
[2022-10-21 03:59] LABS: ~HepC Num1 0.17 S/CO (0.00-0.79); ~Hepatitis C Antibody Nonreactive (Nonreactive)
[2022-10-21 04:00] LABS: HBc Num1 0.08 S/CO (0.00-0.79); HBsAGNum1 0.35 S/CO (0.00-0.99); HIV AB/AG Nonreactive (Nonreactive); HIV Num 1 0.06 S/CO (0.00-0.99); Hepatitis B Core Antibody Nonreactive (Nonreactive); Hepatitis B Surface Antigen Negative (Negative); ~Hepatitis B Surface Antibody REACTIVE (Nonreactive)
== END 2022-10-19 12:55 | disposition home or self-care (01) | DRG 812 ==
LOC: HO.ED 22:47 → HO.EDOVER 22:52 → HO.ICU 23:05 → HO.S3 10-19 09:54
PROVIDERS: Physician Assistant; Admitting Provider Physician Assistant Medical; Emergency Provider Emergency Medicine; PCP Internal Medicine; Visit Provider Family Medicine
DX: T40.2X1A Poisoning by other opioids, accidental (unintentional), initial encounter (principal); J96.01 Acute respiratory failure with hypoxia; M62.82 Rhabdomyolysis; F10.10 Alcohol abuse, uncomplicated; F19.90 Other psychoactive substance use, unspecified, uncomplicated; Z20.822 Contact with and (suspected) exposure to COVID-19; Z87.891 Personal history of nicotine dependence
CPT/HCPCS: 36415; 70450; 71045; 72125; 80053; 80307; 81001; 82077; 82550; 82803; 83540; 83735; 84100; 85025; 86704; 86706; 86803; 87340; 87389; 87635; 99285; J2405; S9485

== ENCOUNTER 2023-01-29 15:40 | Emergency (ER) | payer OTHER, SELFPAY ==
[2023-01-29 15:40] VITALS: RESP 18
[2023-01-29 15:48] VITALS: BP 132/87; BP 136/92; PULSE 113; PULSE 133; RESP 18; TEMP 37.1; O2SAT 100; O2SAT 95; BMI 32.1
--- NOTE | 2023-01-29 16:02 | PC.NURSE ---
spoke with patient asking eval questions. pt was not having respriatory distress. +CSM. no diaphoresis. steady gait. no seizure activity. alert/oriented. pt stated he wanted to talk w/provider about signing out AMA. rn and md rm returned to [facility] two minutes later to ask more questions, discuss pt's desire to leave [facility] vs receive treatment in [place], and take vital signs. pt was gone.
== END 2023-01-29 17:25 | disposition left against medical advice (07) ==
PROVIDERS: Emergency Provider Emergency Medicine; PCP Internal Medicine
DX: T40.1X1A Poisoning by heroin, accidental (unintentional), initial encounter (principal); Y92.9 Unspecified place or not applicable
CPT/HCPCS: 99281; 99282

== ENCOUNTER 2024-08-17 09:56 | Day surgery (SDC) | payer OTHER, SELFPAY ==
--- NOTE | 2024-08-16 12:15 | HO.ANESPROP2 ---
Documented by User: Radha Wood NP 08/16/24 12:15 HPI - Anesthesia Eval Consult details Narrative: 49yo M for Colonoscopy Anesthesia Pre-Procedure Meds Is the patient on any of the following meds?: GLP1/DPP4 PMFSH Active Problems Active Problems: All Active Problems Acute respiratory failure with hypoxia (Acute) Opioid overdose (Acute) Past Medical History Medical History Substance abuse in remission Surgical History Surgical History History of lumbar surgery Social History Social History Household Members: Spouse and Children [facility] Do you presently have visiting nurse or other home services: No Alcohol intake: former Patient Tobacco Use Status: Former Tobacco user e-Cigarette/Vaping Use: Currently Using Substance Use Type: Heroin and Opiates Have you been hit, kicked, punched, or otherwise hurt by someone within the past year? If so, by whom?: No Are you DNR?: No Advance Directives: No Advance Directives Information Provided: Yes service: No Current occupational status: unemployed Meds Allergies Allergy/AdvReac Type Severity Reaction Status Date / Time No Known Allergies Allergy Verified 10/18/22 18:12 [No Known Allergies*] Home Medications ?Medication ?Instructions ?Recorded ?Confirmed ?Last Taken ?Type tirzepatide 2.5 mg/0.5 mL 2.5 mg subcut QWEEK 07/30/24 07/30/24 08/07/24 History subcutaneous pen injector Exam Height,Weight and Vital Signs: Height 6 ft 2 in Weight 106.141 kg Assessment and Plan Assessment Anesthesia Assessment: Chart Reviewed Documented by User: Chyna Feliz MD 08/17/24 10:37 PMFSH Past Medical History Medical History Substance abuse in remission Family History Family history of problems with anesthesia: No Surgical History Surgical History History of lumbar surgery History of Problems with Anesthesia: No Social History Social History Household Members: Spouse and Children [facility]: [facility] Do you presently have visiting nurse or other home services: No Alcohol intake: former Patient Tobacco Use Status: Former Tobacco user e-Cigarette/Vaping Use: Currently Using Substance Use Type: Heroin and Opiates Have you been hit, kicked, punched, or otherwise hurt by someone within the past year? If so, by whom?: No Are you DNR?: No Advance Directives: No Advance Directives Information Provided: Yes service: No Current occupational status: unemployed Meds Allergies Allergy/AdvReac Type Severity Reaction Status Date / Time No Known Allergies Allergy Verified 10/18/22 18:12 [No Known Allergies*] Home Medications ?Medication ?Instructions ?Recorded ?Confirmed ?Last Taken ?Type tirzepatide 2.5 mg/0.5 mL 2.5 mg subcut QWEEK 07/30/24 07/30/24 08/07/24 History subcutaneous pen injector Exam Airway Mallampati Class: II TM Dist: >3cm Neck ROM: Full Heart: rrr Lungs: cta Assessment and Plan Assessment Anesthesia Assessment: Anesthesia Plan Discussed Final Anesthetic Review Family History of Problems with Anesthesia: No History of Problems with Anesthesia: No NPO: Yes ASA Class: III Final Preanesthetic Review: No Changes in Pt Med Stat, Meds/Allgs Chart Reviewed, Consent Obtained/Reviewed and Anes Risks/Benef Reviewed Patient Risk: Intermediate Procedure Risk: Low Anesthetic Plan Anesthetic Plan: MAC: Disposition: Standard PACU
[2024-08-17 10:22] VITALS: BP 102/67; PULSE 78; RESP 20; TEMP 37; O2SAT 98; BMI 30.6
[2024-08-17] MEDS: Lactated Ringers 1,000 ML 100 ML IVCONT (10:33)
--- NOTE | 2024-08-17 10:59 | MHC.SHP ---
Pre-Procedural Eval Section A - 24 Hr Update-Section A only Date of Service: 08/17/24 Section B - Complete if H&P > 30 days Chief Complaint: Other fecal abnormalities Details of Present Illness: see H&P no changes Relevant Social History: None Present Medications: see Short Stay Collaborative assessment Medical History: No relevant PMH History of Previous Operations: No relevant previous surgery Allergies: Allergies Allergy/AdvReac Type Severity Reaction Status Date / Time No Known Allergies Allergy Verified 10/18/22 18:12 [No Known Allergies*] Review of Systems Sugical H&P ROS: Negative: Constitution, Cardiovascular, Respiratory, Neurological, Psychiatric, Hem-Onc, Allergic/Immunologic, Gastrointestinal, Genitourinary, Musculoskeletal, Integumentary, Endocrine and Eyes/Ears/Nose/Throat Exam Surgical H&P Exam: Normal: HEENT, Normal: Heart, Normal: Lungs, Normal: Extremities, Normal: Abdomen, Normal: Skin and Normal: Neurological Plan Diagnosis/Plan: Unchanged I have reviewed the history and physical and performed a pertinent physical examination on my patient. No changes have occurred unless specified. Time Spent With Patient Time: Total time managing care of this patient today ____ minutes.
--- OUTSIDE RECORDS SUMMARY | 2024-08-17 11:16 | XMS_ITS | Clinical Summary ---
Author Organization [facility] it Address [address] [place] [address] Care Team Providers Care Screening Nurse Name Role Phone Unavailable Primary Care Provider Unavailabl e Social History Tobacco Use Types Packs/Day Years Used Date Smoking Tobacco: Never Assessed Sex and Gender Information Value Date Recorded Sex Assigned at Not on file Gender Identity Not on file Sexual Orientation Not on file Plan of Treatment Health Maintenance Due Date Last Done Comments DTaP,Tdap,and Td Vaccines (1 - Tdap) 1993 Hepatitis B Vaccines (1 of 3 - 19+ 3-dose series) 1993 COVID-19 Vaccine ( - 2023-2 5 season) 2024 Influenza Vaccine (#1) 2024 Zoster Vaccines (1 of 2) 2024 HIB Vaccines Aged Out No longer eligi ble based on patient's age to complete this topic HPV Vaccines Aged Out No longer eligi ble based on patient's age to complete this topic Hepatitis A Vaccines Aged Out No long er eligible based on patient's age to complete this topic IPV Vaccines Aged Out No longer eligi ble based on patient's age to complete this topic MMR Vaccines Aged Out No longer eligi ble based on patient's age to complete this topic Meningococcal ACWY Vaccine Aged Out N o longer eligible based on patient's age to complete this topic Pneumococcal Vaccine: Pediat rics (0 to 5 Years) and At-Risk Patients (6 to 64 Years) Aged Out No longer eligible b ased on patient's age to complete this topic RSV Immunization Patients Un ramila 20 months Aged Out No longer eligible b ased on patient's age to complete this topic Varicella Vaccines Aged Out No longer eligible based on patient's age to complete this topic
--- OUTSIDE RECORDS SUMMARY | 2024-08-17 11:16 | XMS_ITS | Clinical Summary ---
Author Organization [facility] Address [address] [place] [address] Care Team Providers Care Light Bulb Replacer Name Role Phone Unavailable Primary Care Provider Unavailabl e Source Comments PLEASE NOTE, if this patient is a minor, it may be UNLAWFUL to discuss sensitive information that is contained in these records (such as FAMILY PLANNING, MENTAL HEALTH or SUBSTANCE ABUSE) with the minor patient's parent or other person without the patient's specific authorization.[facility] Social History Tobacco Use Types Packs/Day Years Used Date Smoking Tobacco: Never Assessed Social Connections Answer Date Recorded Connectedness 0 04/08/2024 Financial Resource Strain Answer Date R ecorded Financial Resource Strain 0 2020 Stress Answer Date Recorded Stress 0 03/26/2021 Physical Activity Answer Date Recorded Physical Activity 0 03/26/2021 Food Insecurity Answer Date Recorded Food 0 04/22/2024 Transportation Needs Answer Date Record ed Transportation 0 03/26/2021 Housing Stability Answer Date Recorded Housing 0 03/26/2021 Safety and Environment Answer Date Feliciano rded Safety 0 03/26/2021 Utilities Answer Date Recorded Utilities 0 03/26/2021 Employment Answer Date Recorded Stress 0 04/08/2024 Sex and Gender Information Value Date Recorded Sex Assigned at Not on file Legal Sex Male 6:51 AM PDT Gender Identity Not on file Sexual Orientation Not on file Plan of Treatment Not on file Insurance [place]
--- OUTSIDE RECORDS SUMMARY | 2024-08-17 11:17 | XMS_ITS ---
Author Organization [facility] Address [address] [place] [address] Care Team Providers Care Utility System Operator Name Role Phone ARTEM SCHWARTZ Unavailable [phone] Allergies No Known Allergies REASON FOR VISIT Substance EVal Problems Problem Type SNOMED Code ICD Code Onset Dates Problem Status W/U Status Risk Notes Problem Nondependent alcohol abuse in remission (462994899) Alcohol abuse, in remission (F10.11) Active confirmed Encounters Encounter Location Date Provider Diagnosis [facility] [address] [place] [address] 04/26/2024 ARTEM SCHWARTZ Alcohol abuse, in remission F10.11 Assessments Encounter Date Diagnosis (ICD Code) Assessment Notes Treatment Notes Treatment Clinical Notes Section Notes 04/26/2024 Alcohol abuse, in remission (ICD-10 - F10.11) Stabe no issues, paperwork reviewed and scanned to his chart. Foem filled and given to pt. scanned Urine tox is negatvie for illicit drug use, will sen for Alcohol confirmation see scanned lab 04/26/2024 Other Total 25 minutes visit spent with pt collectively : hx, exam, meds review and coordinating services Plan Of Treatment Treatment Notes Assessment Notes Alcohol abuse, in remission Stabe no issues, paperwork reviewed and scanned to his chart. Foem filled and given to pt. scanned Urine tox is negatvie for illicit drug use, will sen for Alcohol confirmation see scanned lab Other Total 25 minutes visit spent with pt collectively : hx, exam, meds review and coordinating services Progress Notes * Baldo VIDALDOB:[birth year] (48 yo M)Acc No.[id number]:04/26/2024 Progress Notes Patient:?MARCYErikestephania Provider:?Artem Schwartz MD :1975???Age:48 Y???Sex:Male Robel e:04/26/2024 Address:[address] [place] [address] tariq [id number] Subjective: * Chief Complaints: * ???Substance EVal * HPI: ???:? Substance abuse evaluation for OUI was done pavan, he is her for 3 months check up on his treatemne complaince Alcohol was is issue, and in remission now. * ROS:?+ anxiety, + MSK pain NO N/V/D/ no fever no abd pain. * Medical History:? * Surgical History:? * Hospitalization/Major Diagno stic Procedure:? * Medications:?None * Allergies:?N.K.D.A.no[Allerg ies Verified] Objective: * Vitals:? * Examination: ???General Examination: ?GENERAL APPEARANCE:? pleasant, in no acute distress, well hydrated.?EYES:?normal, pupils equal, round, reactive to light and accommodation.?NEUROLOGIC:? nonfocal, alert and oriented.?PSYCH:? alert, oriented, cognitive function intact, cooperative with exam, good eye contact, judgement and insight good, mood/affect full range, speech clear.? Assessment: * Assessment: 1.?Alcohol abuse, in remissi on - (Primary)??? Plan: * Treatment: 2.?Others? Notes:Total 25 minutes visit spent with pt collectively : hx, exam, meds review and coordinating services ?? * Procedure Codes:? * Billing Information: * Visit Code:? * Procedure Codes:? * Sign off status: Completed true * Provider:?Artem Schwartz MD Date:? Generated for Sudhir mathews/Melody/Belen on:?08/17/2024 11:16 AM EST History and Physical Notes * HPI (History of Present Illness) Category Sub-Category Detail Notes Category Not es Substance abuse evaluation for OUI was done pavan, he is her for 3 months check up on his treatemne complaince Alcohol was is issue, and in remission now. Examination Category Sub-Category Detail Notes Category Not es General Examination GENERAL APPEARANCE: pleasant , in no acute distress, well hydrated EYES: normal, pupils equal , round, reactive to light and accommodation NEUROLOGIC: nonfocal, alert and oriented PSYCH: alert, oriented, cog nitive function intact, cooperative with exam, good eye contact, judgement and insight good, mood/affect full range, speech clear
--- OUTSIDE RECORDS SUMMARY | 2024-08-17 11:17 | XMS_ITS ---
Author Organization [facility] Address [address] [place] [address] Care Team Providers [facility] Name Role Phone ARTEM SCHWARTZ Unavailable [phone] Allergies No Known Allergies REASON FOR VISIT 3 month f/u Vital Signs Temperature 95 degrees Fahrenheit 07/13/2024 Heart Rate 94 /min 07/13/2024 Blood pressure systolic 114 mm Hg 07/13/20 24 Blood pressure diastolic 74 mm Hg 024 Weight 233 lbs 07/13/2024 Oximetry 96 % 07/13/2024 Encounters Encounter Location Date Provider Diagnosis [facility] [address] [place] [id number] 07/13/2024 ARTEM SCHWARTZ Alcohol abuse, in remission F10.11 Assessments Encounter Date Diagnosis (ICD Code) Assessment Notes Treatment Notes Treatment Clinical Notes Section Notes 07/13/2024 Alcohol abuse, in remission (ICD-10 - 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) - in remission stable jazmin coping and recovery skills - urine tox is negative sent for ETHO confirmation 07/13/2024 Other Total 25 minutes visit spent with pt collectively : hx, exam, meds review and coordinating services Plan Of Treatment Treatment Notes Assessment Notes Alcohol abuse, in remission - in remission stable jazmin coping and recovery skills - urine tox is negative sent for ETHO confirmation Other Total 25 minutes visit spent with pt collectively : hx, exam, meds review and coordinating services Next Appt Details Follow Up: 3 Months,prn, [place] son: Progress Notes * Baldo VIDALDOB:[birth year] (48 yo M)Acc No.[id number]:07/13/2024 Progress Notes Patient:?MARCYErikestephania Provider:?Artem Schwartz MD :1975???Age:48 Y???Sex:Male Robel e:07/13/2024 Address:[address] [place], [place] [id number] Subjective: * Chief Complaints: * ???3 month f/u * HPI: ???:? Due for 3 months fu on his Substance absue evaluation No alcohol intake 'Feeling well Still working at [employer]. * ROS:?+ anxiety, + MSK pain NO N/V/D/ no fever no abd pain. * Medical History:? * Surgical History:? * Hospitalization/Major Diagno stic Procedure:? * Medications:?None * Allergies:?N.K.D.A.no[Allerg ies Verified] Objective: * Vitals:?Temp:95F, HR:94/min, BP:114/74mm Hg, Wt:233lbs, Oxygen sat %:96%, Wt-k.69 kg. * Examination: ???General Examination: ?GENERAL APPEARANCE:? pleasant, in no acute distress, well hydrated.?EYES:?normal, pupils equal, round, reactive to light and accommodation.?NEUROLOGIC:? nonfocal, alert and oriented.?PSYCH:? alert, oriented, cognitive function intact, cooperative with exam, good eye contact, judgement and insight good, mood/affect full range, speech clear.? Assessment: * Assessment: 1.?Alcohol abuse, in remissi on - F10.11 (Primary)??? Plan: * Treatment: 2.?Others? Notes:Total 25 minutes visit spent with pt collectively : hx, exam, meds review and coordinating services ?? * Procedure Codes:? * Follow Up:?3 Months,prn * Billing Information: * Visit Code:? * Procedure Codes:? * Sign off status: Completed true * Provider:?Artem Schwartz MD Date:? Generated for Sudhir mathews/Melody/Belen on:?08/17/2024 11:16 AM EST History and Physical Notes * HPI (History of Present Illness) Category Sub-Category Detail Notes Category Not es Due for 3 months fu on his Substance absue evaluation No alcohol intake 'Feeling well Still working at [employer] Examination Category Sub-Category Detail Notes Category Not [...]
--- OUTSIDE RECORDS SUMMARY | 2024-08-17 11:17 | XMS_ITS | Patient Health Record ---
Author Organization [employer] Address [address] [place] [address] Care Team Providers Care Carding Doubler Name Role Phone ARTEM SCHWARTZ Unavailable [phone] Allergies No Known Allergies Results Component Value Reference Range Notes Adulteration (Dilution), Uri ne Reviewed date:07/14/2024 09:47:30 AM Interpretation: Performing Lab:[facility], [address] [place] [address], Phone - [phone], Director - Pushpa Notes/Report: Creatinine, Urine 172.0 20.0-300.0 mg/dL Nitrite, Urine Negative Rrfwjj=503 mcg/mL pH, Urine 6.0 4.5-8.9 Ethyl Glucuronide, Urine Reviewed date:07/14/2024 09:47:23 AM Interpretation: Performing Lab:[facility], [address] [place] [address], Phone - [phone], Director - MDJodry Notes/Report: Ethyl Glucuronide Screen, Ur Negative Dfurgm=312 n g/mL This test was developed and its performance characteristics determined by [facility]. It has not been cleared or approved by the Food and Drug Administration. Ethyl Glucuronide, Urine Reviewed date:04/27/2024 12:11:13 PM Interpretation: Performing Lab:[facility], [address] [place] [address], Phone - [phone], Director - Praveenadry Notes/Report: Ethyl Glucuronide Screen, Ur Negative Gltkbo=857 n g/mL This test was developed and its performance characteristics determined by [facility]. It has not been cleared or approved by the Food and Drug Administration. Reason For Referral No Information Problems Problem Type SNOMED Code ICD Code Onset Dates Problem Status W/U Status Risk Notes Problem Nondependent alcohol abuse in remission (633738038) Alcohol abuse, in remission (F10.11) Active confirmed Vital Signs Heart Rate 94 /min 07/13/2024 Temperature 95 degrees Fahrenheit 07/13/2024 Oximetry 96 % 07/13/2024 Blood pressure diastolic 74 mm Hg 07/13/2024 Blood pressure systolic 114 mm Hg 07/13/2024 Weight 233 lbs 07/13/2024 Encounters Encounter Location Date Provider Diagnosis [facility] [address] [place] [address] 04/26/2024 ARTEM SCHWARTZ Alcohol abuse, in remission F10.11 [facility] [address] [place] [address] 07/13/2024 ARTEM SCHWARTZ Alcohol abuse, in remission [...] sen for Alcohol confirmation see scanned lab 07/13/2024 Alcohol abuse, in remission (ICD-10 - F10.11) - in remission stable jazmin coping and recovery skills - urine tox is negative sent for ETHO confirmation 04/26/2024 Other Total 25 minutes visit spent with pt collectively : hx, exam, meds review and coordinating services 07/13/2024 Other Total 25 minutes visit spent with pt collectively : hx, exam, meds review and coordinating services Plan Of Treatment No Information Medical (General) History Medical History History ICD Code AUD
[2024-08-17 11:46] VITALS: BP 107/79; PULSE 64; RESP 16; TEMP 36.1; O2SAT 100
[2024-08-17 12:03] VITALS: BP 129/91; PULSE 71; RESP 16; TEMP 36.1; O2SAT 98
--- NOTE | 2024-08-17 12:24 | OP_ITS ---
DATE OF SERVICE: 08/17/2024 SURGEON: Chago Zafar MD INDICATIONS: Hemoccult-positive stools. PREOPERATIVE DIAGNOSIS: POSTOPERATIVE DIAGNOSIS: PROCEDURE PERFORMED: Colonoscopy to the terminal ileum with snare polypectomy. ESTIMATED BLOOD LOSS: COMPLICATIONS: ANESTHESIA: Monitored anesthesia care. ASSISTANTS: SPECIMENS: DESCRIPTION OF PROCEDURE: A history and physical was performed. The risks and benefits of the procedure were explained to the patient. Informed consent was obtained. The patient was placed in the left lateral decubitus position. A digital rectal exam was performed and was found to be normal. The Olympus pediatric video colonoscope was introduced into the rectum and advanced to the cecum. The cecum was identified by transillumination, palpation, and identification of ileocecal valve. Examination was performed. The scope was removed. He tolerated the procedure well and was returned to the recovery area in stable condition. FINDINGS: The terminal ileum was examined and appeared normal. The visualized colonic mucosa was normal. The quality of the prep was good with some stool coating the mucosa in the right colon. This was washed and suctioned and irrigation was considered adequate. A single polyp measuring less than 10 mm identified in the rectum and removed with a cold snare. Retroflexed examination showed some small internal hemorrhoids and hypertrophic anal papillae. IMPRESSION: Colon polyp. RECOMMENDATION: Follow up the biopsy results. MD GALILEA Glover/ODETTE / [id number]
== END 2024-08-17 12:30 | disposition home or self-care (01) ==
PROVIDERS: PCP Internal Medicine; Visit Provider Internal Medicine Gastroenterology
PROC: 0DJD8ZZ Inspection of Lower Intestinal Tract, Via Natural or Artificial Opening Endoscopic (ICD-10-PCS; CPT 45378; principal; 2024-08-17 11:30)
DX: K62.1 Rectal polyp (principal); K64.8 Other hemorrhoids; K62.89 Other specified diseases of anus and rectum; R19.5 Other fecal abnormalities; Z83.719 Family history of colon polyps, unspecified; F19.11 Other psychoactive substance abuse, in remission; Z87.891 Personal history of nicotine dependence
CPT/HCPCS: 45385; 88305; J2704